=== PATIENT | female | born 1980 | race Caucasian/White ===

== ENCOUNTER → 2019-10-09 08:39 | Outpatient (CLI) | payer OTHER | END | disposition home or self-care (01) | LOC: D.HCCECHO 08:30 | PROVIDERS: ATTEND Internal Medicine Cardiovascular Disease | DX: R00.2 Palpitations (principal) ==

== ENCOUNTER 2020-08-20 16:22 | Emergency (ER) | payer OTHER ==
[~2020-08-20] VITALS: Ht 165.1 cm; Wt 72.7 kg
[2020-08-20 16:32] VITALS: Ht 165.1 cm; Wt 72.7 kg
[2020-08-20] MEDS ORDERED: HYDROXYCHLOROQ200 MG PO (16:33)
[2020-08-20] MEDS ORDERED: BUPROPION HCL75 MG PO (16:33)
[2020-08-20] MEDS ORDERED: [UNRECOGNIZED DRUG - REMARK] (16:33)
[2020-08-20] MEDS ORDERED: PREDNISONE20 MG PO (17:34)
[2020-08-20 17:45] VITALS: BP 124/81
== END 2020-08-20 17:54 | disposition home or self-care (01) ==
LOC: D.ER 16:22
DX: G56.01 Carpal tunnel syndrome, right upper limb (principal); M25.531 Pain in right wrist